=== PATIENT | female | born 1950 ===

== ENCOUNTER 2017-10-08 18:35 | Inpatient (IN) | payer MEDICARE, OTHER ==
[~2017-10-08] VITALS: Ht 152.4 cm; Wt 53.5 kg
[2017-10-08] MEDS ORDERED: ACETAMINOPHEN/CODEINE 300-30 MG TABLET PO ONE (18:45)
[2017-10-08] MEDS ORDERED: LOVA40TA2 PO (18:46)
[2017-10-08] MEDS ORDERED: ESZO3TAB27 PO (18:46)
[2017-10-08] MEDS ORDERED: GINKO BILOBA PO (18:46)
[2017-10-08] MEDS ORDERED: DULO20CA PO (18:46)
[2017-10-08] MEDS ORDERED: CHON250C PO (18:46)
[2017-10-08] MEDS ORDERED: SULI150T PO (18:46)
[2017-10-08] MEDS ORDERED: AMPH30CA7 PO (18:46)
[2017-10-08] MEDS ORDERED: MELA5TAB PO (18:46)
[2017-10-08] MEDS ORDERED: NORT50CA PO (18:46)
[2017-10-08] MEDS ORDERED: CLOT30LO2 TP (18:46)
[2017-10-08] MEDS ORDERED: ACET1TAB23 PO (18:46)
[2017-10-08] MEDS ORDERED: PSYL1POW MC (18:46)
[2017-10-08] MEDS ORDERED: VERA240C2 PO (18:46)
[2017-10-08] MEDS ORDERED: OMEP20TA5 PO (18:46)
--- NOTE | 2017-10-08 18:52 | NUR ---
PT IS IN ROOM #2A. DR SIMS EVALUATED THE PT.
[2017-10-08] MEDS ORDERED: ACETAMINOPHEN/CODEINE 300-30 MG TABLET ONE (19:06)
--- NOTE | 2017-10-08 19:07 | NUR ---
REPORT GIVEN TO STUDENT SERVICES COORDINATOR RN.
--- NOTE | 2017-10-08 19:10 | NUR ---
REPORT TAKEN FROM BRENDA FAJARDO RN. ASSUMING PT CARE AT THIS TIME.
--- NOTE | 2017-10-08 19:51 | NUR ---
REPORT GIVEN TO WILTON NAJERA.
--- NOTE | 2017-10-08 19:52 | NUR ---
Pt. admitted to MHU OVERFLOW, under care of Dr. CID/LUBA Belongs List completed
--- NOTE | 2017-10-08 20:15 | NUR ---
NEW ADMIT FROM ER ADMITTED FOR PSYCHOSIS AND PARANOIA. SHE DENIES PAIN, NO ACUTE DISTRESS ON ASSESSMENT. DENIES ANY SUICIDAL THOUGHT AT PRESENT. SITTER AT BEDSIDE,SAFETY MEASURE MAINTAINED AT ALL TIMES
[2017-10-08 20:17] VITALS: BP 158/91
[2017-10-08] MEDS ORDERED: MAG HYDROX/AL HYDROX/SIMETH 30 ML LIQUID UDC PO PRN (20:30)
[2017-10-08] MEDS ORDERED: MAGNESIUM HYDROXIDE 30 ML LIQUID UDC PO PRN (20:30)
[2017-10-08] MEDS: LORAZEPAM 0.5 MG TABLET PO PRN (21:47)
[2017-10-08] MEDS: ACETAMINOPHEN 325 MG TABLET PO PRN (21:47)
--- NOTE | 2017-10-09 06:28 | NUR ---
PATIENT SLEEPING MOST OF THE SHIFT, CONTINUES TO HAVE LOW ENERGY. DENIES ANY THOUGHTS OF HURTING SELF. SITTER REMAINS AT BEDSIDE WITH CLOSE MONITORING OF PATIENT. SAFETY MEASURES MAINTAINED AT ALL TIMES
[2017-10-09] MEDS: ACETAMINOPHEN 325 MG TABLET PO PRN ×2 (06:33→20:33)
[2017-10-09] MEDS: PANTOPRAZOLE SODIUM 40 MG TABLET.DR PO SCH (06:33)
--- NOTE | 2017-10-09 07:00 | NUR ---
RECEIVED PATIENT ON BED, ASLEEP NO ACUTE DISTRESS NOTED. MHU OVERFLOW. 1:1 SITTER AT BEDSIDE. PATIENT IS A AND O X 3, COOPERATIVE AND COMPLIANT WITH MEDS. NO SI NOTED AT THIS TIME. NO PAIN/DISCOMFORT AT THIS TIME. COMFORT MEASURES PROVIDED. CALL LIGHT WITHIN REACH. WILL CONTINUE TO MONITOR CLOSELY.
[2017-10-09] MEDS: VERAPAMIL SR 240 MG TABLET.SA PO SCH (08:14)
[2017-10-09 10:39] VITALS: BP 118/64
[2017-10-09] MEDS: DULOXETINE 60 MG CAPSULE.DR PO SCH (10:54)
[2017-10-09 14:32] VITALS: BP 144/76
--- NOTE | 2017-10-09 15:15 | NUR ---
PATIENT TRANSFERRED IN STABLE CONDITION TO MHU WITH BELONGINGS VIA WHEELCHAIR. , REPORT GIVEN TO ZOE KERN. CHART GIVEN TO MHU.
--- NOTE | 2017-10-09 15:55 | NUR ---
Initial DC Plan: Patient currently lives at home with her [[address] [place] [address]; [phone]]. SW will follow up with patient, MD, and patient's Nora [[phone]] to discuss most appropriate discharge plans. SW will form a safe and proper discharge.
--- NOTE | 2017-10-09 16:06 | NUR ---
Gps/Tractor Trailer Driver- Received from 2nd floor via wheel chair, in no distress, cooperative , pleasant, oriented to unit settings, safety reviewed and emphasized, denies any discomfort at this time.
--- NOTE | 2017-10-09 17:56 | NUR ---
Gps/On Awake Counselor- Patient visit patient, looking for her cell phone, informed pt. came from 2nd floor w/o any belongings with her, will check with 2nd floor staff belongings. brought medications from home as well as other contrabands, informed things that are not aloud . Agreed to take home meds from home , phone client finance analyst , pens ,calculators.Per , his in not suicidal anymore.Safety continue to review and emphasized.
[2017-10-09 20:04] VITALS: BP 120/78
[2017-10-09] MEDS: ATORVASTATIN 40 MG TABLET PO SCH (20:33)
[2017-10-09] MEDS: QUETIAPINE FUMARATE 25 MG TABLET PO SCH (20:34)
[2017-10-09] MEDS: ZOLPIDEM 5 MG TABLET PO PRN (21:51)
--- NOTE | 2017-10-09 22:00 | NUR ---
received to care, pleasant upon approach. denies SI, or desire to harm self. compliant with medications and staff direction. PRN tylenol was given at 2034, for a headache, whichrersolved by 2129. PRN ambien was givenat 2150, for insomnia. currently watching tv with peer. no dsitress noted. will continue to monitor closely.
--- NOTE | 2017-10-09 23:00 | NUR ---
went to bed at 0. as of 2299, she appears to be asleep. no distress noted. will continue to monitor closely.
--- NOTE | 2017-10-10 06:00 | NUR ---
slept 7 hours, total. continues to sleep. no distress noted.
[2017-10-10] MEDS: PANTOPRAZOLE SODIUM 40 MG TABLET.DR PO SCH (06:21)
[2017-10-10 08:04] VITALS: BP 156/86
[2017-10-10] MEDS: DULOXETINE 60 MG CAPSULE.DR PO SCH (08:56)
[2017-10-10] MEDS: VERAPAMIL SR 240 MG TABLET.SA PO SCH (08:56)
[2017-10-10 15:42] VITALS: BP 152/64
[2017-10-10] MEDS: LORAZEPAM 0.5 MG TABLET PO PRN (16:01)
[2017-10-10 19:50] VITALS: BP 159/84
[2017-10-10] MEDS: ATORVASTATIN 40 MG TABLET PO SCH (20:30)
[2017-10-10] MEDS: QUETIAPINE FUMARATE 25 MG TABLET PO SCH (20:30)
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
[2017-10-11] MEDS: LORAZEPAM 0.5 MG TABLET PO PRN ×3 (02:51→22:06)
--- NOTE | 2017-10-11 06:29 | NUR ---
GPS: REMAIN CALM AND COOPERATIVE WITH MEDICATIONS AND CARE. SLEPT 7:30 HRS THROUGH THE NIGHT. PLESANT UPON APPROACH. RESTING IN BED COMFORTABLY. CONTINUE PLAN OF CARE.
[2017-10-11] MEDS: PANTOPRAZOLE SODIUM 40 MG TABLET.DR PO SCH (06:46)
[2017-10-11 08:00] VITALS: BP 136/77
[2017-10-11] MEDS: DULOXETINE 60 MG CAPSULE.DR PO SCH (08:25)
[2017-10-11] MEDS: VERAPAMIL SR 240 MG TABLET.SA PO SCH (08:25)
[2017-10-11 16:25] VITALS: BP 132/68
[2017-10-11 20:00] VITALS: BP 135/71
[2017-10-11] MEDS: QUETIAPINE FUMARATE 25 MG TABLET PO SCH (22:04)
[2017-10-11] MEDS: ATORVASTATIN 40 MG TABLET PO SCH (22:04)
[2017-10-12] MEDS: PANTOPRAZOLE SODIUM 40 MG TABLET.DR PO SCH (06:33)
--- NOTE | 2017-10-12 06:52 | NUR ---
SLEPT WELL THROUGH THE NIGHT.6;30.RESTING COMFORTABLY IN BED. CONTINUE WITH PLAN OF CARE
--- NOTE | 2017-10-12 06:57 | NUR ---
SLEPT FOR 6'30. CALM AND COOPERATIVE. CONTINUE WITH PLAN OF CARE
--- NOTE | 2017-10-12 06:58 | NUR ---
SLEPT FOR 6;30. CALM AND COOPERATIVE. CONTINUE WITH PLAN OF CARE
[2017-10-12 07:30] VITALS: BP 140/68
[2017-10-12] MEDS: DULOXETINE 60 MG CAPSULE.DR PO SCH (08:34)
[2017-10-12] MEDS: VERAPAMIL SR 240 MG TABLET.SA PO SCH (08:34)
[2017-10-12] MEDS: ESCITALOPRAM OXALATE 10 MG TABLET PO SCH (09:21)
--- NOTE | 2017-10-12 13:33 | NUR ---
UR Note: ALEXX faxed patient's most recent clinicals to KELLEY Durbin at [facility] [phone]; fax: [phone]]. Awaiting authorization.
[2017-10-12 15:22] VITALS: BP 141/67
[2017-10-12 20:00] VITALS: BP 148/71
[2017-10-12] MEDS: QUETIAPINE FUMARATE 25 MG TABLET PO SCH (20:53)
[2017-10-12] MEDS: ATORVASTATIN 40 MG TABLET PO SCH (20:53)
[2017-10-12] MEDS: ZOLPIDEM 5 MG TABLET PO PRN (21:00)
[2017-10-13] MEDS: PANTOPRAZOLE SODIUM 40 MG TABLET.DR PO SCH (06:31)
--- NOTE | 2017-10-13 06:45 | NUR ---
CALM AND COOPERATIVE.INITIALLY COULD NOT GO OFF TO SLEEP AND REQUESTED A SLEEPING PILL TAB AMBIEN 5MG GIVEN WITH GOOD EFFECT. SLEPT FOR 8HRS.WILL CONTINUE WITH PLAN OF CARE
[2017-10-13 07:30] VITALS: BP 144/79
[2017-10-13 08:18] VITALS: BP 144/74
[2017-10-13] MEDS: VERAPAMIL SR 240 MG TABLET.SA PO SCH (08:18)
[2017-10-13] MEDS: ESCITALOPRAM OXALATE 10 MG TABLET PO SCH (08:18)
--- NOTE | 2017-10-13 10:44 | NUR ---
DC Note: Patient will be discharged home with her [[address] [facility] [address]] via private transportation. SW spoke with patient's Nora [[phone]] who stated he will supervisor winter patient at 12pm. Patient is aware and agreeable to discharge plans and denies SI and HI. Patient will follow up with her curtain framer Dr. Shawn So [[address], [place] [address]; ] and psychiatrist Dr. Pulliam [[address]. [place], [place]; [phone]]. Patient was also referred to therapist Lori More LCSW [[address]. [place], [place]; [phone]].
--- NOTE | 2017-10-13 12:30 | NUR ---
GPS: Nursing Notes: Discharge Notes: Patient is away and responding to her name, cooperative with nursing care, compliant with her medications, following staff directions, denies any SI/HI, denies any Ah/VH, denies any pain or discomfort, denies any SOB, discharge home with her (Nora ) at [address], [place] [address]. Patient will follow up with her travel med surg rn Dr. Shawn So [[address], [place] [address]; ] and psychiatrist Dr. Pulliam [[address]. [place], [place]; [phone]]. Patient was also referred to therapist Lori More LCSW [[address]. [place], [place]; [phone]]. Transported home via private vehicle by her , instructions and prescription given to .
== END 2017-10-13 12:30 | disposition home or self-care (01) | DRG 885 ==
LOC: ER 18:35 → GPSOV 19:50 → GPS 10-09 15:18
PROVIDERS: ADMIT Psychiatry & Neurology Psychiatry; ATTEND Internal Medicine
DX: F33.3 Major depressive disorder, recurrent, severe with psychotic symptoms (principal); E78.5 Hyperlipidemia, unspecified; F41.9 Anxiety disorder, unspecified; K21.9 Gastro-esophageal reflux disease without esophagitis; M10.9 Gout, unspecified; Z79.899 Other long term (current) drug therapy; I10 Essential (primary) hypertension; R51 Headache; G47.00 Insomnia, unspecified
CPT/HCPCS: 36415; 71045; 93005; A4663

== ENCOUNTER 2019-04-13 19:41 | Inpatient (IN) | payer MEDICARE, OTHER ==
[~2019-04-13] VITALS: Ht 149.9 cm; Wt 46.3 kg
[~2019-04-13 19:41] MED LIST: ACET1TAB23 PO; AMPH30CA7 PO; CHON250C PO; CLOT30LO2 TP; ESZO3TAB27 PO; GINKO BILOBA PO; LOVA40TA2 PO; OMEP20TA5 PO; PSYL1POW PO; SULI150T PO; VERA240C2 PO
--- NOTE | 2019-04-13 20:13 | NUR ---
Pt is medically cleared by Dr. Alcantar.
[2019-04-13 20:17] LABS: BASOPHILS # (AUTO) 0.1 K/uL (0.0-8.0); BASOPHILS % (AUTO) 1.1 % (0.0-2.0); EOSINOPHILS # (AUTO) 0.1 K/uL (0.0-0.7); EOSINOPHILS % (AUTO) 0.9 % (0.0-7.0); HEMATOCRIT 41.1 % (31.2-41.9); HEMOGLOBIN 13.5 g/dL (10.9-14.3); LYMPHOCYTES % (AUTO) 22.1 % (20.5-51.5); MEAN CORPUSCULAR HEMOGLOBIN 30.6 uug (24.7-32.8); MEAN CORPUSCULAR HGB CONC 33 g/dL (32.3-35.6); MEAN CORPUSCULAR VOLUME 92.9 fL (75.5-95.3); MONOCYTES # (AUTO) 0.6 K/uL (2.0-10.0); MONOCYTES % (AUTO) 6.8 % (0.0-11.0); NEUTROPHILS # (AUTO) 6.2 K/uL (1.8-8.9); NEUTROPHILS % (AUTO) 69.1 % (38.5-71.5); PLATELET COUNT (AUTO) 458 K/uL (179-408); RED BLOOD CELL COUNT(AUTO) 4.42 MIL/uL (3.63-4.92); WHITE BLOOD COUNT (AUTO) 8.9 K/uL (3.8-11.8)
[2019-04-13 20:24] LABS: CARBON DIOXIDE 27 mmol/L (21-32); CHLORIDE 108 mmol/L (98-107); CREATININE 0.8 mg/dL (0.6-1.3); GLUCOSE 155 mg/dL (74-106); POTASSIUM 3.6 mmol/L (3.5-5.1); UREA NITROGEN, BLOOD 19 mg/dL (7-18)
--- NOTE | 2019-04-13 20:28 | NUR ---
Pt. admitted to MHU, under care of Dr. Uriostegui/Noah. Pt on [address] Gravely Disabled. Sent from [facility] for medical clearance/admission to MHU. Belongs List completed.
[2019-04-13 20:30] LABS: ALANINE AMINOTRANSFERASE 23 U/L (14-59); ALKALINE PHOSPHATASE 111 U/L (50-136); ASPARTATE AMINOTRANSFERASE 13 U/L (15-37); BILIRUBIN,DIRECT 0.1 mg/dL (0.0-0.2); BILIRUBIN,TOTAL 0.2 mg/dL (0.2-1.0); TOTAL PROTEIN, SERUM 7.2 g/dL (6.4-8.2)
[2019-04-13 20:31] LABS: ACETAMINOPHEN < 2.0 ug/mL (10-30)
[2019-04-13 20:32] LABS: ETHANOL < 3 MG/DL (0-0)
[2019-04-13] MEDS ORDERED: MELA5TAB PO (20:33)
[2019-04-13] MEDS ORDERED: DEXT30SU17 PO (20:33)
[2019-04-13] MEDS ORDERED: DULO20CA PO (20:33)
[2019-04-13] MEDS ORDERED: NAPR-1009 PO (20:33)
[2019-04-13] MEDS ORDERED: NORT50CA PO (20:33)
--- NOTE | 2019-04-13 20:45 | NUR ---
68 Y. O. FEMALE BROUGHT TO MHU FROM ER VIA GURNEY, ACCOMPANIED BY ER STAFF. PT ADMITTED ON A 5150 FOR GD. RN CONCURS WITH THE HOLD. ADVISEMENT AND PATIENT RIGHTS HANDBOOK GIVEN. UPON FACE TO FACE ASSESSMENT, PT APPEARS TO REFLECT WHAT IS ON THE HOLD. PT IS A+O X3., AND COOPERATIVE WITH ASSESSMENT. PT SHOWS ANXIOUS, RESTLESS,DEPRESS, SAYING SORRY ALL THE TIME, AND TEARFUL AT TIMES OF INTERVIEW. PT AGREED FOR SAFETY. PT SKIN IS INTACT. PENITENTIARY ASSESSMENT DONE. PT REFUSED TO CALL HER FAMILY. DR. HEATHER MENDEZ AND DR. VLADIMIR BONILLA NOTIFIED ON ADMISSION, ORDERS RECEIVED. PT ORIENTED TO UNIT, AND EDUCATED ON UNIT RULES. PERSONAL BELONGINGS COMPLETED. CONTRABAND PLACED IN UNIT LOCKER. VITAL SIGNS STABLE. PENITENTIARY ASSESSMENT DONE. FALL PRECAUTION OBSERVED WILL CLOSELY MONITOR.
[2019-04-13] MEDS ORDERED: MAG HYDROX/AL HYDROX/SIMETH 30 ML LIQUID UDC PO PRN (21:15)
[2019-04-13] MEDS ORDERED: ACETAMINOPHEN 325 MG TABLET PO PRN (21:15)
[2019-04-13] MEDS ORDERED: MAGNESIUM HYDROXIDE 30 ML LIQUID UDC PO PRN (21:15)
--- NOTE | 2019-04-13 21:45 | NUR ---
DR BONILLA WAS NOTIFY OF PATIENT'S ADMISSION TO MHU AND TO RECONCILE HER MEDICATIONS. WILL CONTINUE TO MONITOR.
[2019-04-13] MEDS: TEMAZEPAM 7.5 MG CAPSULE PO PRN (23:42)
--- NOTE | 2019-04-14 06:13 | NUR ---
PT SLEPT 6.45H . PT GIVEN MYLANTA FOR UPSET STOMACH AND RESTORIL FOR SLEEP PER PT REQUEST. PT SHOWS NO SIGNS OF ACUTE DISTRESS. SAFETY AND COMFORT PROVIDED. WILL ENDORSE TO INCOMING NURSE.
[2019-04-14 10:43] VITALS: BP 119/60
[2019-04-14] MEDS ORDERED: ACETAMINOPHEN/CODEINE 300-30 MG TABLET PO PRN (13:00)
[2019-04-14] MEDS ORDERED: DEXTROMETHORPHAN POLISTIREX 30 MG PO PRN (13:00)
[2019-04-14] MEDS: CLONAZEPAM 0.5 MG TABLET PO PRN ×2 (15:12→22:46)
[2019-04-14] MEDS ORDERED: GUAIFENESIN/DEXTROMETHORPHAN 5 ML UDC PO PRN (16:00)
[2019-04-14] MEDS: DULOXETINE 30 MG CAPSULE.DR PO SCH (16:16)
[2019-04-14 16:39] VITALS: BP 140/70
[2019-04-14] MEDS ORDERED: SULINDAC 150 MG PO SCH (17:00)
[2019-04-14] MEDS ORDERED: VERAPAMIL HCL 240 MG PO SCH (18:00)
[2019-04-14 20:24] VITALS: BP 132/75
[2019-04-14] MEDS: ATORVASTATIN 10 MG TABLET PO SCH (20:59)
[2019-04-14] MEDS: QUETIAPINE FUMARATE 25 MG TABLET PO SCH (20:59)
[2019-04-14] MEDS: VERAPAMIL SR 120 MG TABLET.SA PO SCH (20:59)
[2019-04-14] MEDS: NORTRIPTYLINE HCL 25 MG CAPSULE PO SCH (21:00)
[2019-04-14] MEDS ORDERED: CLONAZEPAM 0.5 MG TABLET ONE (22:42)
[2019-04-15] MEDS: PANTOPRAZOLE SODIUM 40 MG TABLET.DR PO SCH (07:37)
[2019-04-15 07:50] VITALS: BP 153/84
[2019-04-15] MEDS ORDERED: Medication Not On Formulary EA (Omeprazole 20 MG) PO SCH (09:00)
[2019-04-15] MEDS ORDERED: PSYLLIUM HUSK PO SCH (09:00)
[2019-04-15] MEDS: NAPROXEN 500 MG TABLET PO SCH ×2 (09:51→18:33)
[2019-04-15] MEDS: PSYLLIUM SEED PACKET PO SCH (09:51)
[2019-04-15] MEDS: DULOXETINE 30 MG CAPSULE.DR PO SCH (09:51)
--- NOTE | 2019-04-15 15:59 | NUR ---
Initial discharge plan: Pt lives in her personal home with her [Levi Smith; [phone]] at [address], [place] [address]. Pt plans to return home after discharge. ALEXX spoke with pts who is also agreeable with her returning to their home. ALEXX will work with the pt, pt family, and MD regarding appropriate discharge planning. ALEXX will form a safe and proper discharge plan.
--- NOTE | 2019-04-15 15:59 | NUR ---
SW spoke with pt's next of kin, her [Levi Smith; [phone]] and he informed SW that he would like pt to return to their home by Thursday because she has a doctor's appointment with a neurologist, as they believe her mental health issues could be further helped by a neurologist. Pts states he will be visiting pt tomorrow (04/16) to discuss this with medical staff.
[2019-04-15 16:05] VITALS: BP 124/72
[2019-04-15 20:31] VITALS: BP 121/76
[2019-04-15] MEDS: ATORVASTATIN 10 MG TABLET PO SCH (21:09)
[2019-04-15] MEDS: QUETIAPINE FUMARATE 25 MG TABLET PO SCH (21:09)
[2019-04-15] MEDS: NORTRIPTYLINE HCL 25 MG CAPSULE PO SCH (21:09)
[2019-04-15] MEDS: VERAPAMIL SR 120 MG TABLET.SA PO SCH (21:10)
--- NOTE | 2019-04-16 05:29 | NUR ---
Patient slept on and off for 6 hours. Patient laying in bed awake at this time. Plan to obtain a UA from patient when able to void. No distress during the night.
[2019-04-16] MEDS: PANTOPRAZOLE SODIUM 40 MG TABLET.DR PO SCH (06:28)
[2019-04-16 07:30] VITALS: BP 126/68
[2019-04-16] MEDS: NAPROXEN 500 MG TABLET PO SCH ×2 (08:32→18:24)
[2019-04-16] MEDS: DULOXETINE 30 MG CAPSULE.DR PO SCH (08:32)
[2019-04-16] MEDS: PSYLLIUM SEED PACKET PO SCH (08:33)
--- NOTE | 2019-04-16 12:00 | NUR ---
Gps/Locomotive Crane Operator Helper- Attempted to collect urine specimen for UA, unable to provide at this time, pt. forgets ,
[2019-04-16 15:14] VITALS: BP 107/81
--- NOTE | 2019-04-16 16:33 | NUR ---
Gps/Brewing Technician- Patient family and , requesting patient to be released from this unit by thursday morning , r/t appointment with the Neurologist they made at [address] Uriostegui wont be back till thursday, Dr Brady is covering right now, but unable to released patient till he talked to Primary Psychiatrist.(Dr Uriostegui)
[2019-04-16 20:30] VITALS: BP 118/61
[2019-04-16] MEDS: NORTRIPTYLINE HCL 25 MG CAPSULE PO SCH (20:42)
[2019-04-16] MEDS: ATORVASTATIN 10 MG TABLET PO SCH (20:42)
[2019-04-16] MEDS: VERAPAMIL SR 120 MG TABLET.SA PO SCH (20:43)
[2019-04-16] MEDS: QUETIAPINE FUMARATE 25 MG TABLET PO SCH (20:43)
[2019-04-16 22:02] LABS: *BILIRUBIN,URIN NEGATIVE (NEGATIVE); *BLOOD, URINE NEGATIVE (NEGATIVE); *CLARITY,URINE CLEAR (CLEAR); *COLOR,URINE YELLOW (YELLOW); *KETONES,URINE TRACE (NEGATIVE); *UROBILINOGEN,URINE 0.2 E.U./dl (NORMAL); LEUKOCYTE ESTERASE ,URINE 1+ (NEGATIVE); NITRITE, URINE NEGATIVE (NEGATIVE); PH,URINE 5.5 (5.0-8.0); UGLUCOSE NEGATIVE (NEGATIVE)
[2019-04-16] MEDS: TEMAZEPAM 7.5 MG CAPSULE PO PRN (22:04)
[2019-04-16 22:30] LABS: RBC,URINE 0-3 /HPF (0-3)
[2019-04-16 22:31] LABS: BACTERIA,URINE FEW /HPF (NONE SEEN); SQUAMOUS EPITHELIAL CELL,UR FEW /HPF (NONE SEEN); WBC,URINE 20-50 /HPF (0-3)
--- NOTE | 2019-04-16 23:05 | NUR ---
PATIENT UNABLE TO SLEEP. GIVEN RESTORIL 7.5MG PO PRN FOR SLEEP. BED ALARM ON. ALL NEEDS ATTENDED. WILL CONTINUE TO MONITOR AND ASSESS.
[2019-04-17] MEDS: CLONAZEPAM 0.5 MG TABLET PO PRN (04:48)
--- NOTE | 2019-04-17 04:50 | NUR ---
PATIENT AWAKE, ANXIOUS. PATIENT GIVEN KLONOPIN 0.5MG PO PRN FOR ANXIETY. ALL NEEDS ATTENDED. WILL CONTINUE TO MONITOR AND ASSESS.
[2019-04-17] MEDS: PANTOPRAZOLE SODIUM 40 MG TABLET.DR PO SCH (06:47)
[2019-04-17 07:30] VITALS: BP 91/49
[2019-04-17] MEDS: DULOXETINE 30 MG CAPSULE.DR PO SCH (08:21)
[2019-04-17] MEDS: NAPROXEN 500 MG TABLET PO SCH ×2 (08:21→18:09)
[2019-04-17] MEDS: PSYLLIUM SEED PACKET PO SCH (08:21)
[2019-04-17 16:06] VITALS: BP 104/56
[2019-04-17 20:37] VITALS: BP 110/58
[2019-04-17] MEDS: VERAPAMIL SR 120 MG TABLET.SA PO SCH (21:10)
[2019-04-17] MEDS: SULFAMETH/TRIMETH 800/160 MG TABLET PO SCH (21:10)
[2019-04-17] MEDS: ATORVASTATIN 10 MG TABLET PO SCH (21:11)
[2019-04-17] MEDS: QUETIAPINE FUMARATE 25 MG TABLET PO SCH (21:11)
[2019-04-17] MEDS: NORTRIPTYLINE HCL 25 MG CAPSULE PO SCH (21:12)
[2019-04-17] MEDS: TEMAZEPAM 7.5 MG CAPSULE PO PRN (22:19)
--- NOTE | 2019-04-17 22:30 | NUR ---
Patient asking for something to help her sleep, PRN Restoril given. Will continue to monitor.
[2019-04-18] MEDS: PANTOPRAZOLE SODIUM 40 MG TABLET.DR PO SCH (06:16)
[2019-04-18 07:30] VITALS: BP 102/55
[2019-04-18] MEDS: PSYLLIUM SEED PACKET PO SCH (08:22)
[2019-04-18] MEDS: NAPROXEN 500 MG TABLET PO SCH ×2 (08:22→17:24)
[2019-04-18] MEDS: SULFAMETH/TRIMETH 800/160 MG TABLET PO SCH ×2 (08:22→20:51)
[2019-04-18] MEDS: DULOXETINE 30 MG CAPSULE.DR PO SCH (08:22)
--- NOTE | 2019-04-18 09:20 | NUR ---
GPS: Received patient AOx1-2, on bed, patient calm and cooperative, confused, patient verbalizing about her ticket that she has to go back to [facility], denies SI and HI, will continue monitor
[2019-04-18] MEDS: CLONAZEPAM 0.5 MG TABLET PO PRN (10:04)
--- NOTE | 2019-04-18 12:52 | NUR ---
GPS: patient visited by family, sister requesting for neurology consult , calt and inform Dr. Mueller covering today for Dr. meehan, orders to wait for tomorrow
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
--- NOTE | 2019-04-18 13:12 | NUR ---
Discharge Planning Boat Outfitter met with patient's , [Levi Smith; [phone]] who stated that patient is leaving for [place] on April 22, 2019 and they need her to return home before her trip this week. Patient's family would like to come pick her up and transport her home during discharge.
--- NOTE | 2019-04-18 13:48 | NUR ---
UR Note: Gyro Compass Tester faxed clinical information to assigned Crm Coordinator Fuentes at [facility] ( ext. [phone]: ). Gyro Compass Tester updated Crm Coordinator regarding clinicals and awaiting call for authorization.
[2019-04-18 15:16] VITALS: BP 92/42
--- NOTE | 2019-04-18 17:28 | NUR ---
patient verbalizes anxiety, worried about her niece and her going to [facility], patient pacing around, able to redirect, patient seen eating her dinner
[2019-04-18 20:39] VITALS: BP 106/62
[2019-04-18] MEDS: NORTRIPTYLINE HCL 25 MG CAPSULE PO SCH (20:50)
[2019-04-18] MEDS: QUETIAPINE FUMARATE 25 MG TABLET PO SCH (20:50)
[2019-04-18] MEDS: ATORVASTATIN 10 MG TABLET PO SCH (20:51)
[2019-04-18] MEDS: VERAPAMIL SR 120 MG TABLET.SA PO SCH (20:52)
[2019-04-18] MEDS: TEMAZEPAM 7.5 MG CAPSULE PO PRN (22:16)
--- NOTE | 2019-04-19 05:37 | NUR ---
Received patient AOx2,not in acute distress or SOB. Anxious, but cooperative. Compliant with medications and care. Denies SI,HI. Continue to monitor.
[2019-04-19] MEDS: PANTOPRAZOLE SODIUM 40 MG TABLET.DR PO SCH (06:03)
[2019-04-19 07:30] VITALS: BP 121/55
[2019-04-19] MEDS: DULOXETINE 30 MG CAPSULE.DR PO SCH (08:19)
[2019-04-19] MEDS: SULFAMETH/TRIMETH 800/160 MG TABLET PO SCH ×2 (08:19→20:08)
[2019-04-19] MEDS: NAPROXEN 500 MG TABLET PO SCH ×2 (08:19→18:00)
[2019-04-19] MEDS: PSYLLIUM SEED PACKET PO SCH (08:19)
--- NOTE | 2019-04-19 08:55 | NUR ---
GPS: received patient AOx2-3, patient shows some anxiety, however able to redirect, patient compliant with medication
[2019-04-19 15:05] VITALS: BP 91/49
--- NOTE | 2019-04-19 16:49 | NUR ---
UR Note: Product Management Internship provided verbal clinical information to assigned Transition Mgr Rn Fuentes schaefer [facility] ( ext. [phone]: ). Product Management Internship updated Transition Mgr Rn regarding clinicals and patient discharge plans.
--- NOTE | 2019-04-19 18:14 | NUR ---
patient seen to be anxious however patient redirectable, in no distress at this time
[2019-04-19 19:55] VITALS: BP 135/68
[2019-04-19] MEDS: VERAPAMIL SR 120 MG TABLET.SA PO SCH (20:08)
[2019-04-19] MEDS: CLONAZEPAM 0.5 MG TABLET PO PRN (20:08)
[2019-04-19] MEDS: ATORVASTATIN 10 MG TABLET PO SCH (20:09)
[2019-04-19] MEDS: QUETIAPINE FUMARATE 25 MG TABLET PO SCH (20:09)
[2019-04-19] MEDS: NORTRIPTYLINE HCL 25 MG CAPSULE PO SCH (20:09)
--- NOTE | 2019-04-19 21:22 | NUR ---
aaox2-3 confused but redirectable. VSS very anxious. Clonazepam given. compliant with meds. Tolerated po meds well. No signs of agitation or restlessness noted. Ambulates to the BR. Voiding freely. On antibiotic therapy for UTI. No ill effects noted. Kept comfortable. Will monitor patient.
[2019-04-20] MEDS: PANTOPRAZOLE SODIUM 40 MG TABLET.DR PO SCH (06:11)
--- NOTE | 2019-04-20 06:18 | NUR ---
slept most of the shift. no signs of agitation or anxiousness. no complaints presented during shift. possible discharge today.
[2019-04-20 07:45] VITALS: BP 122/65
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
--- NOTE | 2019-04-20 08:14 | NUR ---
Discharge Note Patient will be discharged today back home [[address], [place] [address]]. Patient will be picked up by , Levi Smith [[phone]] at 11AM. Patient is alert and oriented x4, denies suicidal or homicidal ideation, and is aware and agreeable with discharge plans. Patient is moving to [place] this coming Monday, April 22, 2019 with her family for permanent residency and medical treatment. Patient and family refused psychiatry and physician follow up at this time due to her move and will follow up with a new psychiatrist and a new primary care physician in [place], which has been confirmed by her , Levi Smith [[phone]] and sister, Sally Gupta [[phone]]. Executive Team Leader provided education and reassurance about the importance of mental health treatment and follow up for the patient and family.
[2019-04-20] MEDS: DULOXETINE 30 MG CAPSULE.DR PO SCH (08:24)
[2019-04-20] MEDS: NAPROXEN 500 MG TABLET PO SCH (08:24)
[2019-04-20] MEDS: SULFAMETH/TRIMETH 800/160 MG TABLET PO SCH (08:24)
[2019-04-20] MEDS: PSYLLIUM SEED PACKET PO SCH (08:24)
--- NOTE | 2019-04-20 13:02 | NUR ---
Patient is being discharged home with family. Pt's Bubba Smith is picking her up. Pt will follow up with private doctor. VS are stable, no distress. Discharge instructions given.
== END 2019-04-20 12:30 | disposition home or self-care (01) | DRG 885 ==
LOC: ER 19:43 → GPS 20:26
PROVIDERS: ADMIT Psychiatry & Neurology Psychiatry; ATTEND Hospitalist
DX: F33.3 Major depressive disorder, recurrent, severe with psychotic symptoms (principal); N39.0 Urinary tract infection, site not specified; M10.9 Gout, unspecified; K21.9 Gastro-esophageal reflux disease without esophagitis; G47.00 Insomnia, unspecified; I10 Essential (primary) hypertension; E78.5 Hyperlipidemia, unspecified; Z82.49 Family history of ischemic heart disease and other diseases of the circulatory system; F03.90 Unspecified dementia, unspecified severity, without behavioral disturbance, psychotic disturbance, mood disturbance, and anxiety; Z79.899 Other long term (current) drug therapy
CPT/HCPCS: 36415; 84443; 85025; 87086; A4663; G0480; G0480-TC

== ENCOUNTER 2019-04-25 15:40 | Inpatient (IN) | payer OTHER ==
[~2019-04-25] VITALS: Ht 162.6 cm; Wt 63.5 kg
[~2019-04-25 15:40] MED LIST changes: +DEXT30SU17 PO; -ESZO3TAB27 PO; -GINKO BILOBA PO; +NAPR-1009 PO
[2019-04-25] MEDS ORDERED: CEPH500T PO (15:55)
[2019-04-25 20:00] VITALS: BP 108/59
[2019-04-25] MEDS ORDERED: MAGNESIUM HYDROXIDE 30 ML LIQUID UDC PO PRN (20:45)
[2019-04-25] MEDS ORDERED: BLOOD SUGAR DIAGNOSTIC 1 EACH STRIP VI ONE (20:45)
[2019-04-25] MEDS ORDERED: ACETAMINOPHEN 325 MG TABLET PO PRN (20:45)
[2019-04-25] MEDS: TEMAZEPAM 7.5 MG CAPSULE PO PRN (21:35)
[2019-04-26] MEDS: CLONAZEPAM 0.5 MG TABLET PO SCH ×2 (00:42→18:07)
[2019-04-26 07:59] VITALS: BP 111/62
[2019-04-26] MEDS ORDERED: ACETAMINOPHEN/CODEINE 300-30 MG TABLET PO PRN (14:30)
[2019-04-26 15:18] VITALS: BP 136/73
[2019-04-26] MEDS: DULOXETINE 30 MG CAPSULE.DR PO SCH (17:11)
[2019-04-26] MEDS: NAPROXEN 500 MG TABLET PO SCH (17:11)
[2019-04-26] MEDS ORDERED: VERAPAMIL HCL 240 MG PO SCH (18:00)
[2019-04-26] MEDS: NORTRIPTYLINE HCL 25 MG CAPSULE PO SCH (20:07)
[2019-04-26] MEDS: ATORVASTATIN 20 MG TABLET PO SCH (20:08)
[2019-04-26 20:20] VITALS: BP 110/61
[2019-04-26] MEDS ORDERED: QUETIAPINE FUMARATE 25 MG TABLET PO SCH (21:00)
[2019-04-27 06:42] LABS: *BILIRUBIN,URIN NEGATIVE (NEGATIVE); *BLOOD, URINE NEGATIVE (NEGATIVE); *CLARITY,URINE CLEAR (CLEAR); *COLOR,URINE YELLOW (YELLOW); *KETONES,URINE NEGATIVE (NEGATIVE); *UROBILINOGEN,URINE 0.2 E.U./dl (NORMAL); LEUKOCYTE ESTERASE ,URINE NEGATIVE (NEGATIVE); NITRITE, URINE NEGATIVE (NEGATIVE); PH,URINE 5.5 (5.0-8.0); UGLUCOSE NEGATIVE (NEGATIVE)
[2019-04-27 07:43] VITALS: BP 130/72
[2019-04-27] MEDS: PSYLLIUM SEED PACKET PO SCH (09:00)
[2019-04-27] MEDS ORDERED: PSYLLIUM HUSK PO SCH (09:00)
[2019-04-27] MEDS: DULOXETINE 30 MG CAPSULE.DR PO SCH ×2 (09:45→17:21)
[2019-04-27] MEDS: NAPROXEN 500 MG TABLET PO SCH ×2 (09:46→17:21)
[2019-04-27] MEDS: CLONAZEPAM 0.5 MG TABLET PO SCH (13:21)
[2019-04-27 16:16] VITALS: BP 115/59
[2019-04-27] MEDS: VERAPAMIL SR 120 MG TABLET.SA PO SCH (17:24)
[2019-04-27 20:09] VITALS: BP 123/67
[2019-04-27] MEDS: QUETIAPINE FUMARATE 25 MG TABLET PO SCH (20:40)
[2019-04-27] MEDS: ATORVASTATIN 20 MG TABLET PO SCH (20:40)
[2019-04-27] MEDS: NORTRIPTYLINE HCL 25 MG CAPSULE PO SCH (20:40)
[2019-04-27] MEDS: MAG HYDROX/AL HYDROX/SIMETH 30 ML LIQUID UDC PO PRN (20:51)
[2019-04-28 07:55] VITALS: BP 111/63
[2019-04-28] MEDS: DULOXETINE 30 MG CAPSULE.DR PO SCH ×2 (08:28→18:01)
[2019-04-28] MEDS: QUETIAPINE FUMARATE 25 MG TABLET PO SCH ×2 (08:28→20:42)
[2019-04-28] MEDS: NAPROXEN 500 MG TABLET PO SCH ×2 (08:28→18:01)
[2019-04-28] MEDS: PSYLLIUM SEED PACKET PO SCH (08:34)
[2019-04-28 16:00] VITALS: BP 111/55
[2019-04-28] MEDS: VERAPAMIL SR 120 MG TABLET.SA PO SCH (18:00)
[2019-04-28 20:33] VITALS: BP 112/60
[2019-04-28] MEDS: ATORVASTATIN 20 MG TABLET PO SCH (20:42)
[2019-04-28] MEDS: NORTRIPTYLINE HCL 25 MG CAPSULE PO SCH (20:43)
[2019-04-29 07:30] VITALS: BP 127/75
[2019-04-29] MEDS: QUETIAPINE FUMARATE 25 MG TABLET PO SCH ×2 (08:38→20:13)
[2019-04-29] MEDS: NAPROXEN 500 MG TABLET PO SCH ×2 (08:38→18:00)
[2019-04-29] MEDS: DULOXETINE 30 MG CAPSULE.DR PO SCH (08:38)
[2019-04-29] MEDS: PSYLLIUM SEED PACKET PO SCH (08:44)
[2019-04-29] MEDS ORDERED: DULOXETINE 30 MG CAPSULE.DR PO SCH (13:00)
[2019-04-29 15:23] VITALS: BP 103/57
[2019-04-29] MEDS: VERAPAMIL SR 120 MG TABLET.SA PO SCH (18:00)
[2019-04-29] MEDS: DULOXETINE 60 MG CAPSULE.DR PO SCH (20:13)
[2019-04-29] MEDS: ATORVASTATIN 20 MG TABLET PO SCH (20:13)
[2019-04-29] MEDS: NORTRIPTYLINE HCL 25 MG CAPSULE PO SCH (20:14)
[2019-04-29 20:25] VITALS: BP 126/65
[2019-04-30 07:30] VITALS: BP 131/65
[2019-04-30] MEDS: PSYLLIUM SEED PACKET PO SCH (09:00)
[2019-04-30] MEDS: NAPROXEN 500 MG TABLET PO SCH ×2 (09:09→17:43)
[2019-04-30] MEDS: QUETIAPINE FUMARATE 25 MG TABLET PO SCH ×2 (09:09→20:25)
[2019-04-30] MEDS: DULOXETINE 30 MG CAPSULE.DR PO SCH (09:09)
[2019-04-30] MEDS: MAG HYDROX/AL HYDROX/SIMETH 30 ML LIQUID UDC PO PRN (14:58)
[2019-04-30 15:07] VITALS: BP 105/53
[2019-04-30] MEDS: VERAPAMIL SR 120 MG TABLET.SA PO SCH (17:28)
[2019-04-30] MEDS: ATORVASTATIN 20 MG TABLET PO SCH (20:25)
[2019-04-30] MEDS: DULOXETINE 60 MG CAPSULE.DR PO SCH (20:26)
[2019-04-30] MEDS: NORTRIPTYLINE HCL 25 MG CAPSULE PO SCH (20:26)
[2019-04-30 23:18] VITALS: BP 114/61
[2019-05-01 07:30] VITALS: BP 106/55
[2019-05-01] MEDS: QUETIAPINE FUMARATE 25 MG TABLET PO SCH ×2 (08:38→20:56)
[2019-05-01] MEDS: DULOXETINE 30 MG CAPSULE.DR PO SCH (08:38)
[2019-05-01] MEDS: NAPROXEN 500 MG TABLET PO SCH ×2 (08:38→17:24)
[2019-05-01] MEDS: PSYLLIUM SEED PACKET PO SCH (08:39)
[2019-05-01 16:00] VITALS: BP 95/50
[2019-05-01] MEDS: VERAPAMIL SR 120 MG TABLET.SA PO SCH (17:23)
[2019-05-01 20:00] VITALS: BP 101/51
[2019-05-01] MEDS: ATORVASTATIN 20 MG TABLET PO SCH (20:56)
[2019-05-01] MEDS: DULOXETINE 60 MG CAPSULE.DR PO SCH (20:56)
[2019-05-01] MEDS: NORTRIPTYLINE HCL 25 MG CAPSULE PO SCH (20:57)
[2019-05-01 21:01] VITALS: BP 109/56
[2019-05-02] MEDS: CLONAZEPAM 0.5 MG TABLET PO PRN (02:58)
[2019-05-02 07:30] VITALS: BP 108/70
[2019-05-02] MEDS: DULOXETINE 30 MG CAPSULE.DR PO SCH (08:13)
[2019-05-02] MEDS: PSYLLIUM SEED PACKET PO SCH (08:13)
[2019-05-02] MEDS: NAPROXEN 500 MG TABLET PO SCH ×2 (08:13→17:10)
[2019-05-02] MEDS: QUETIAPINE FUMARATE 25 MG TABLET PO SCH ×2 (08:44→20:22)
[2019-05-02 15:13] VITALS: BP 93/60
[2019-05-02] MEDS: VERAPAMIL SR 120 MG TABLET.SA PO SCH (17:10)
[2019-05-02 20:00] VITALS: BP 119/68
[2019-05-02] MEDS: ATORVASTATIN 20 MG TABLET PO SCH (20:21)
[2019-05-02] MEDS: DULOXETINE 60 MG CAPSULE.DR PO SCH (20:21)
[2019-05-02] MEDS: NORTRIPTYLINE HCL 25 MG CAPSULE PO SCH (20:22)
[2019-05-02] MEDS: MAG HYDROX/AL HYDROX/SIMETH 30 ML LIQUID UDC PO PRN (20:30)
[2019-05-03 07:30] VITALS: BP 123/65
[2019-05-03] MEDS: DULOXETINE 30 MG CAPSULE.DR PO SCH (08:43)
[2019-05-03] MEDS: QUETIAPINE FUMARATE 25 MG TABLET PO SCH ×2 (08:43→20:16)
[2019-05-03] MEDS: NAPROXEN 500 MG TABLET PO SCH ×2 (08:43→17:01)
[2019-05-03] MEDS: PSYLLIUM SEED PACKET PO SCH (08:44)
[2019-05-03 15:07] VITALS: BP 115/65
[2019-05-03] MEDS: VERAPAMIL SR 120 MG TABLET.SA PO SCH (17:02)
[2019-05-03 20:12] VITALS: BP 111/52
[2019-05-03] MEDS: ATORVASTATIN 20 MG TABLET PO SCH (20:17)
[2019-05-03] MEDS: NORTRIPTYLINE HCL 25 MG CAPSULE PO SCH (20:17)
[2019-05-03] MEDS: DULOXETINE 60 MG CAPSULE.DR PO SCH (20:17)
[2019-05-04 07:30] VITALS: BP 103/47
[2019-05-04] MEDS: DULOXETINE 30 MG CAPSULE.DR PO SCH (09:44)
[2019-05-04] MEDS: NAPROXEN 500 MG TABLET PO SCH ×2 (09:45→18:22)
[2019-05-04] MEDS: QUETIAPINE FUMARATE 25 MG TABLET PO SCH (09:45)
[2019-05-04] MEDS: PSYLLIUM SEED PACKET PO SCH (09:45)
[2019-05-04 16:00] VITALS: BP 91/49
[2019-05-04] MEDS: VERAPAMIL SR 120 MG TABLET.SA PO SCH (18:00)
[2019-05-04] MEDS: DULOXETINE 60 MG CAPSULE.DR PO SCH (20:12)
[2019-05-04] MEDS: QUETIAPINE FUMARATE 100 MG TABLET PO SCH (20:13)
[2019-05-04] MEDS: NORTRIPTYLINE HCL 25 MG CAPSULE PO SCH (20:13)
[2019-05-04] MEDS: ATORVASTATIN 20 MG TABLET PO SCH (20:13)
[2019-05-04 20:22] VITALS: BP 106/51
[2019-05-04] MEDS: MAG HYDROX/AL HYDROX/SIMETH 30 ML LIQUID UDC PO PRN (20:29)
[2019-05-04] MEDS ORDERED: QUETIAPINE FUMARATE 25 MG TABLET PO SCH (21:00)
[2019-05-04] MEDS: TEMAZEPAM 7.5 MG CAPSULE PO PRN (22:41)
[2019-05-05 07:30] VITALS: BP 120/60
[2019-05-05] MEDS: NAPROXEN 500 MG TABLET PO SCH (08:00)
[2019-05-05] MEDS ORDERED: DULOXETINE 30 MG CAPSULE.DR PO SCH (09:00)
[2019-05-05] MEDS: PSYLLIUM SEED PACKET PO SCH (09:00)
[2019-05-05] MEDS ORDERED: DULOXETINE 60 MG CAPSULE.DR PO SCH (09:00)
[2019-05-05] MEDS: QUETIAPINE FUMARATE 100 MG TABLET PO SCH (09:05)
[2019-05-05] MEDS: CLONAZEPAM 0.5 MG TABLET PO PRN (11:03)
== END 2019-05-05 12:45 | disposition home or self-care (01) | DRG 885 ==
LOC: ER 15:40 → GPSOV3 18:31 → GPS 04-26 14:02
PROVIDERS: ADMIT Psychiatry & Neurology Psychiatry; ATTEND Internal Medicine
DX: F33.3 Major depressive disorder, recurrent, severe with psychotic symptoms (principal); K21.9 Gastro-esophageal reflux disease without esophagitis; G47.00 Insomnia, unspecified; T71.162D Asphyxiation due to hanging, intentional self-harm, subsequent encounter; E78.5 Hyperlipidemia, unspecified; M10.9 Gout, unspecified; Z87.440 Personal history of urinary (tract) infections; Z91.5 Personal history of self-harm; Z79.899 Other long term (current) drug therapy; I10 Essential (primary) hypertension; F03.90 Unspecified dementia, unspecified severity, without behavioral disturbance, psychotic disturbance, mood disturbance, and anxiety
CPT/HCPCS: 36415; 71045; 87086; 93005